=== PATIENT | female | born 1975 ===

== ENCOUNTER 2022-07-23 06:08 | Day surgery (SDC) | payer OTHER ==
[~2022-07-23] VITALS: Ht 160 cm; Wt 65.3 kg
[2022-07-23] MEDS ORDERED: IBU600 MG PO (10:55)
[2022-07-23] MEDS ORDERED: MORGIDOX100 MG PO (10:55)
== END 2022-07-23 15:55 | disposition home or self-care (01) ==
LOC: CIR.AMB 06:08
PROVIDERS: ATTEND Obstetrics & Gynecology
DX: N80.03 Adenomyosis of the uterus (principal); N84.0 Polyp of corpus uteri; N92.1 Excessive and frequent menstruation with irregular cycle; N92.5 Other specified irregular menstruation; D25.0 Submucous leiomyoma of uterus; Z91.013 Allergy to seafood; Z20.822 Contact with and (suspected) exposure to COVID-19